=== PATIENT | male | born 1990 ===

== ENCOUNTER 2022-05-28 06:39 | Observation (INO) ==
[~2022-05-28 06:39] MED LIST: Buffered Lidocaine 1% SYRIN 1 ml INTRADERM ONE; Lactated Ringers 1000 ml BAG 1,000 ML IV SCH; Naloxone 0.4 mg VIAL 0.4 mg/ml 1 ml VIAL IV PRN; Ondansetron 4 mg VIAL 2 MG/ML 2 ml VIAL IV PRN
[2022-05-28] MEDS ORDERED: ceFAZolin 2 GM PREMIX 2 GM/50 ML BAG ONE (06:57)
[2022-05-28] MEDS ORDERED: Dexamethasone IV 4 MG/ML VIAL 1 ml VIAL ONE (09:09)
[2022-05-28] MEDS ORDERED: Lidocaine 2% PF 5 ML VIAL ONE (09:09)
[2022-05-28] MEDS ORDERED: Ondansetron 4 mg VIAL 2 MG/ML 2 ml VIAL ONE (09:09)
[2022-05-28] MEDS ORDERED: Propofol 10 MG/ML 20 ML BTL ONE (09:09)
[2022-05-28] MEDS ORDERED: fentaNYL 100 mcg/2 ml 50 MCG/ML VIAL ONE ×3 (09:28→13:38)
[2022-05-28] MEDS ORDERED: Rocuronium 50 mg VIAL 10 mg/ml 5 ml VIAL (50 mg) ONE ×2 (09:28→12:04)
[2022-05-28] MEDS ORDERED: ceFAZolin 2 GM in NS PREMIX 2 GM/100 ML BAG IVPB ONE (10:00)
[2022-05-28] MEDS ORDERED: HYDROmorphone 0.5 MG/0.5 ML SYRINGE ONE ×2 (10:07→12:55)
[2022-05-28] MEDS ORDERED: Vancomycin 1,000 MG VIAL ONE (12:33)
[2022-05-28] MEDS ORDERED: Ondansetron ODT 4 mg TAB 4 MG TAB PO PRN (13:09)
[2022-05-28] MEDS ORDERED: Lactulose 30 ml UDC PO PRN (13:09)
[2022-05-28] MEDS ORDERED: Magnesium Hydroxide LIQ 30 ML UDC PO PRN (13:09)
[2022-05-28] MEDS ORDERED: Ondansetron 4 mg VIAL 2 MG/ML 2 ml VIAL IV PRN (13:09)
[2022-05-28] MEDS: fentaNYL 100 mcg/2 ml 50 MCG/ML VIAL IV PRN ×2 (13:39→13:47)
[2022-05-28] MEDS ORDERED: oxyCODONE/Acetamin 5/325 mg TAB ONE (13:56)
[2022-05-28] MEDS: oxyCODONE/Acetamin 5/325 mg TAB PO PRN ×2 (13:59→14:00)
[2022-05-28] MEDS ORDERED: Vancomycin per Pharmacy 1 EA NOTE FOLLOW UP SCH (14:00)
[2022-05-28] MEDS ORDERED: Lactated Ringers 1000 ml BAG 1,000 ML IV SCH (14:00)
[2022-05-28] MEDS ORDERED: Zosyn per Pharmacy NOTE FOLLOW UP SCH (14:00)
[2022-05-28] MEDS ORDERED: Piperacillin/Tazobac ADVAN 3.375 GM in NS 0.9% 100 ml BAG 100 ML IV ONE (15:30)
[2022-05-28] MEDS ORDERED: Vancomycin 1,500 MG in NS 0.9% 250 ml 250 ML IVPB ONE (16:00)
[2022-05-28] MEDS: CMCS: Meloxicam 7.5 mg TAB (NF) PO PRN (17:51)
[2022-05-28] MEDS: ZOSYN 3.375 GM Q8H per EXTENDED INFUSION IV SCH (22:07)
[2022-05-28] MEDS: Magnesium Hydroxide LIQ 30 ML UDC PO SCH (22:10)
[2022-05-29] MEDS: ZOSYN 3.375 GM Q8H per EXTENDED INFUSION IV SCH ×3 (04:08→21:16)
[2022-05-29 08:04] LABS: Hematocrit 34 % (42-52); Hemoglobin 11.3 g/dL (14.0-18.0); Mean Platelet Volume 8.1 fL (7.4-10.4); Platelet Count 167 10^3/uL (150-450)
[2022-05-29] MEDS: Vancomycin 1,250 MG in NS 0.9% 250 ml 250 ML IVPB SCH ×2 (08:08→22:08)
[2022-05-29 08:24] LABS: Calcium 8.5 mg/dL (8.6-10.3); Potassium 4.6 mmol/L (3.5-5.0); eGFR CKD-EPI 107.7 (>60)
[2022-05-29 08:46] LABS: C Reactive Protein 17.14 mg/L (<8.01)
[2022-05-29 08:48] LABS: ABS Lymphocytes 1.5 10^3/ul (1.0-4.8); ABS Monocytes 1.3 10^3/ul (0-0.8); ABS Neutrophils 14.6 10^3/ul (1.5-7.7); Lymphocyte % 8.9 %; Mean Corpuscular HGB Conc 33 g/dL (31-36); Mean Corpuscular Hemoglobin 29 pg (27-31); Mean Corpuscular Volume 86 fL (80-94); Nucleated Red Blood Cells % 0.1; Red Cell Distribution Width 13 % (10-15); White Blood Count 17.4 10^3/uL (3.5-10.8)
[2022-05-29] MEDS: CMCS: Meloxicam 7.5 mg TAB (NF) PO PRN (09:12)
[2022-05-29] MEDS: Magnesium Hydroxide LIQ 30 ML UDC PO SCH (09:12)
[2022-05-29] MEDS: Vitamin THERAPEUTIC TAB PO SCH (09:12)
[2022-05-29 10:31] LABS: Erythrocyte Sed Rate 13 mm/Hr (0-14)
[2022-05-29] MEDS: CMCS:Meloxicam 7.5 mg TAB (NF) PO SCH (21:09)
[2022-05-29] MEDS: ZOSYN 3.375 GM Q6H - Intermittant 30 min Infusion IV SCH (21:19)
[2022-05-30] MEDS: Magnesium Hydroxide LIQ 30 ML UDC PO SCH ×3 (00:15→21:39)
[2022-05-30] MEDS: ZOSYN 3.375 GM Q6H - Intermittant 30 min Infusion IV SCH ×4 (03:24→22:23)
[2022-05-30] MEDS ORDERED: Vancomycin Trough Check NOTE FOLLOW UP ONE (07:30)
[2022-05-30 07:44] LABS: Hematocrit 29 % (42-52); Hemoglobin 9.9 g/dL (14.0-18.0); Mean Platelet Volume 7.9 fL (7.4-10.4); Platelet Count 137 10^3/uL (150-450)
[2022-05-30] MEDS: CMCS:Meloxicam 7.5 mg TAB (NF) PO SCH ×2 (07:44→21:40)
[2022-05-30] MEDS: Vitamin THERAPEUTIC TAB PO SCH (07:54)
[2022-05-30] MEDS: Vancomycin 1,250 MG in NS 0.9% 250 ml 250 ML IVPB SCH (08:54)
[2022-05-30] MEDS: Vancomycin 1,500 MG in NS 0.9% 250 ml 250 ML IVPB SCH (19:39)
[2022-05-31] MEDS: ZOSYN 3.375 GM Q6H - Intermittant 30 min Infusion IV SCH (03:00)
[2022-05-31 05:34] LABS: Hematocrit 30 % (42-52); Hemoglobin 9.7 g/dL (14.0-18.0); Mean Platelet Volume 7.5 fL (7.4-10.4); Platelet Count 153 10^3/uL (150-450)
[2022-05-31 06:14] LABS: Calcium 8.2 mg/dL (8.6-10.3); Potassium 4.1 mmol/L (3.5-5.0); eGFR CKD-EPI 102.6 (>60)
[2022-05-31] MEDS: Vancomycin 1,500 MG in NS 0.9% 250 ml 250 ML IVPB SCH (07:45)
[2022-05-31] MEDS: CMCS:Meloxicam 7.5 mg TAB (NF) PO SCH (08:20)
[2022-05-31] MEDS: Vitamin THERAPEUTIC TAB PO SCH (08:20)
[2022-05-31] MEDS: Magnesium Hydroxide LIQ 30 ML UDC PO SCH (08:20)
[2022-06-01] MEDS ORDERED: Vancomycin Trough Check NOTE FOLLOW UP ONE (07:30)
== END 2022-05-31 16:30 ==
LOC: SSU 06:39 → OR 06:39
PROVIDERS: ADMIT Orthopaedic Surgery; ATTEND Orthopaedic Surgery